=== PATIENT | female | born 1955 | race Caucasian/White ===

== ENCOUNTER 2016-04-29 13:37 | Emergency (ER) | payer BC ==
[~2016-04-29] VITALS: Ht 172.7 cm; Wt 114.3 kg
[~2016-04-29 13:37] MED LIST: ALLEGRA ALLERG180 MG PO; HYDROCODONE-AP1 EAC6 PO; LEVAQUIN 500 M500 M4 PO; XANAX 0.5 MG0.5 MG PO
== END 2016-04-29 14:31 | disposition home or self-care (01) ==
LOC: ER 13:37
DX: L25.9 Unspecified contact dermatitis, unspecified cause (principal); J45.909 Unspecified asthma, uncomplicated; G47.30 Sleep apnea, unspecified; Z90.710 Acquired absence of both cervix and uterus

== ENCOUNTER → 2019-04-17 | Outpatient (CLI) | payer BC, OTHER | LOC: RAD 15:17 | DX: M47.816 Spondylosis without myelopathy or radiculopathy, lumbar region (principal); M48.07 Spinal stenosis, lumbosacral region; M41.86 Other forms of scoliosis, lumbar region; M25.512 Pain in left shoulder; M25.511 Pain in right shoulder ==